=== PATIENT | female | born 2000 | race African-American/Black ===

== ENCOUNTER 2019-04-28 23:30 | Emergency (ER) | payer OTHER ==
[2019-04-29 02:23] LABS: APPEARANCE,URINE CLOUDY; BILIRUBIN,URINE NEGATIVE (NEGATIVE); COLOR,URINE YELLOW; GLUCOSE, URINE NEGATIVE (NEGATIVE); KETONES,URINE 80 mg/dL (NEGATIVE); LEUKOCYTE ESTERASE,URINE LARGE (NEGATIVE); NITRITE,URINE NEGATIVE (NEGATIVE); PROTEIN,URINE 100 mg/dL (NEGATIVE); URINE SPECIFIC GRAVITY 1.024; UROBILINOGEN,URINE NEGATIVE mg/dL (<2.0)
[2019-04-29] MEDS ORDERED: ONDANSETRON 4 MG TAB.RAPDIS PO ONE (03:08)
--- NOTE | 2019-04-29 03:09 | ER Document Report ---
ED GI/ - General Chief Complaint: Urinary Problem Stated Complaint: URINARY PROBLEM Time Seen by Provider: 04/29/19 03:00 Primary Care Provider: ASHTYN BYNUM FNP [Primary Care Provider] - Follow up as needed Notes: Patient is a 19-year-old female that comes emergency department for chief complaint of lower abdominal pain, burning with urination, blood in the urine, nausea and vomiting. Symptoms started over the past 24 hours. She states she vomited 3 times. She denies flank pain, denies fever, denies history of kidney stones. She also does report a whitish vaginal discharge. She denies vaginal bleeding. She is on oral contraceptive, takes no other medications, has had a history of umbilical hernia repair, denies medical history otherwise. She is sexually active, she is states she is uncertain if she has possibly been exposed to an STD. TRAVEL OUTSIDE OF THE [place] IN LAST 30 DAYS: No - Related Data Allergies/Adverse Reactions: No Known Allergies Allergy (Unverified 04/29/19 01:38) Home Medications: CONTROL Past Medical History - General Information source: Patient - Social History Smoking Status: Current Every Day Smoker Frequency of alcohol use: None Drug Abuse: None Lives with: Family Family History: Reviewed & Not Pertinent Patient has suicidal ideation: No Patient has homicidal ideation: No - Medical History Medical History: Negative Surgical Hx: Negative - Immunizations Immunizations up to date: Yes Hx Diphtheria, Pertussis, Tetanus Vaccination: Yes Review of Systems - Review of Systems Constitutional: No symptoms reported EENT: No symptoms reported Cardiovascular: No symptoms reported Respiratory: No symptoms reported Gastrointestinal: See HPI Genitourinary: See HPI Female Genitourinary: See HPI Musculoskeletal: No symptoms reported Skin: No symptoms reported Hematologic/Lymphatic: No symptoms reported Neurological/Psychological: No symptoms reported Physical Exam - Vital signs Vitals: Temp Pulse Resp BP Pulse Ox 99.3 F 84 20 119/66 98 04/28/19 23:48 04/28/19 23:48 04/28/19 23:48 04/28/19 23:48 04/28/19 23:48 - Notes Notes: GENERAL: Alert, interacts well. No acute distress. HEAD: Normocephalic, atraumatic. EYES: Pupils equal, round, and reactive to light. Extraocular movements intact. ENT: Oral mucosa moist, tongue midline. Oropharynx unremarkable. Airway patent. LUNGS: Clear to auscultation bilaterally, no wheezes, rales, or rhonchi. No respiratory distress. HEART: Regular rate and rhythm. No murmur ABDOMEN: There is some lower abdominal central and suprapubic tenderness. Remaining abdomen completely benign. Bowel sounds present throughout. No guarding. EXTREMITIES: Moves all 4 extremities spontaneously. No edema, normal radial and dorsalis pedis pulses bilaterally. No cyanosis. BACK: No CVA tenderness. No cervical, thoracic, lumbar midline tenderness. No saddle anesthesia, normal distal neurovascular exam. Moves all extremities in full range of motion. NEUROLOGICAL: Alert and oriented x3. Normal speech. Cranial nerves II through XII grossly intact. PSYCH: Normal affect, normal mood. SKIN: Warm, dry, normal turgor. No rashes or lesions noted. Course - Re-evaluation Re-evalutation: Patient with some suprapubic tenderness, no CVA tenderness, she does report vomiting and nausea earlier but she was able to tolerate p.o. very easily now and she is laughing and well-appearing. Abdomen otherwise is very unremarkable. We did perform pelvic exam to rule out infection but this was very unremarkable on exam and the wet mount is very unremarkable. I discussed with patient and decision was made not to treat for STDs because of the lack of symptoms and the unremarkable work-up at this point. Urinalysis does indicate infection, test negative. She will be treated for suspected cystitis with Keflex, she will return if she worsens including returned nausea/vomiting, spiking fevers, or any other concerning or worsening symptoms. Patient states appreciation and agreement. Stable at time of discharge. 04/29/19 07:29 Final results are now available, chlamydia is negative gonorrhea is actually positive. I called and spoke with patient on the phone, I informed her of her positive gonorrhea test and the importance that she and her partner be treated now. She states that she will follow-up immediately and be treated. - Vital Signs Vital signs: Temp Pulse Resp BP Pulse Ox 98.3 F 118 H 16 138/76 H 99 04/29/19 06:00 04/29/19 06:00 04/29/19 06:00 04/29/19 06:00 04/29/19 06:00 - Laboratory Laboratory results interpreted by me: 04/29/19 04/29/19 01:53 04:00 Urine Protein 100 H Urine Ketones 80 H Urine Blood MODERATE H Ur Leukocyte Esterase LARGE H N.gonorrhoeae DNA (PCR) DETECTED H Discharge - Discharge Clinical Impression: Dysuria Urinary tract infection Qualifiers: Urinary tract infection type: acute cystitis Hematuria presence: with hematuria Qualified Code(s): N30.01 - Acute cystitis with hematuria Nausea and vomiting Qualifiers: Vomiting type: unspecified Vomiting Intractability: non-intractable Qualified Code(s): R11.2 - Nausea with vomiting, unspecified Condition: Stable Disposition: HOME, SELF-CARE Additional Instructions: Your evaluation is most consistent with a urinary tract infection, most likely a bladder infection. Take antibiotics as prescribed to completion. Rest. Drink plenty of fluids. Take the Zofran if needed for nausea. Follow-up closely with primary care. Return if you worsen including spiking fevers, vomiting, severe worsening pain, or any other concerning symptoms. Prescriptions: Cephalexin Monohydrate [Keflex 500 mg Capsule] 500 mg PO BID 7 Days #14 capsule Referrals: ASHTYN BYNUM FNP [Primary Care Provider] - Follow up as needed
[2019-04-29 04:33] LABS: RBCS (WET MOUNT) FEW RBCS SEEN; WBCS (WET MOUNT) FEW WBCS SEEN; YEAST (WET MOUNT) NO YEAST SEEN
[2019-04-29 04:34] LABS: T.VAGINALIS (WET MOUNT) NO TRICHOMONAS SEEN
[2019-04-29] MEDS ORDERED: CEPHALEXIN 500 MG CAPSULE PO ONE (04:37)
[2019-04-29] MEDS ORDERED: ONDANSETRON ODT 4 MG TAB (6 TAB/ER DISP) PO PRN (04:39)
[2019-04-29 06:01] VITALS: BP 138/76
[2019-04-29 06:17] LABS: CHLAM PCR NOT DETECTED (NOT DETECT)
== END 2019-04-29 06:05 | disposition home or self-care (01) ==
LOC: ER 23:30
DX: N30.01 Acute cystitis with hematuria (principal); R10.30 Lower abdominal pain, unspecified; R30.0 Dysuria; R11.2 Nausea with vomiting, unspecified; F17.200 Nicotine dependence, unspecified, uncomplicated
CPT/HCPCS: 87210; 81025; 81001; 87491; 87591; S0119; 87086; 87088; 99283

== ENCOUNTER 2019-05-01 10:47 | Emergency (ER) | payer OTHER ==
[2019-05-01] MEDS ORDERED: CEFTRIAXONE INJ 250 MG VIAL IM ONE (10:49)
[2019-05-01] MEDS ORDERED: LIDOCAINE 1% INJ-PF (10 MG/ML) 30 ML SDV INJ ONE (10:49)
[2019-05-01] MEDS ORDERED: AZITHROMYCIN 250 MG TABLET PO ONE (10:49)
--- NOTE | 2019-05-01 10:58 | ER Document Report ---
HPI - HPI Patient complains to provider of: Treatment for gonorrhea Time Seen by Provider: 05/01/19 10:53 Onset/Duration: Persistent Quality of pain: Burning Pain Level: 1 Context: Patient states that she was seen here recently and treated for UTI. Patient received a phone call stating that she tested positive for gonorrhea and that she needs to receive a Rocephin injection. Associated Symptoms: denies: Fever, Nausea, Vomiting Exacerbated by: Denies Relieved by: Denies Similar symptoms previously: No Recently seen / treated by doctor: Yes - ROS ROS below otherwise negative: Yes Systems Reviewed and Negative: Yes All other systems reviewed and negative - CONSTITUTIONAL Constitutional: DENIES: Fever, Chills - NEURO Neurology: DENIES: Weakness - GASTROINTESTINAL Gastrointestinal: DENIES: Abdominal Pain, Nausea, Patient vomiting - URINARY Urinary: REPORTS: Dysuria - REPRODUCTIVE Reproductive: REPORTS: Abnormal bleeding / discharge. DENIES: : - MUSCULOSKELETAL Musculoskeletal: DENIES: Back Pain - DERM Skin Color: Normal Skin Problems: None Past Medical History - General Information source: Patient - Social History Smoking Status: Current Every Day Smoker Chew tobacco use (# tins/day): No Frequency of alcohol use: None Drug Abuse: None Occupation: None Family History: Reviewed & Not Pertinent Patient has suicidal ideation: No Patient has homicidal ideation: No - Medical History Medical History: Negative Pulmonary Medical History: Reports: Hx Asthma Past Surgical History: Reports: Hx Herniorrhaphy - Immunizations Immunizations up to date: Yes Hx Diphtheria, Pertussis, Tetanus Vaccination: Yes Vertical Provider Document - CONSTITUTIONAL Agree With Documented VS: Yes Exam Limitations: No Limitations General Appearance: WD/WN, No Apparent Distress - INFECTION CONTROL TRAVEL OUTSIDE OF THE [place] IN LAST 30 DAYS: No - HEENT HEENT: Atraumatic, Normocephalic - NECK Neck: Normal Inspection - RESPIRATORY Respiratory: Breath Sounds Normal, No Respiratory Distress - CARDIOVASCULAR Cardiovascular: Regular Rate, Regular Rhythm - GI/ABDOMEN Gastrointestinal: Abdomen Soft - BACK Back: Normal Inspection. negative: CVA Tenderness-Right, CVA Tenderness-Left - MUSCULOSKELETAL/EXTREMETIES Musculoskeletal/Extremeties: MAEW - NEURO Level of Consciousness: Awake, Alert, Appropriate Motor/Sensory: No Motor Deficit - DERM Integumentary: Warm, Dry Course - Re-evaluation Re-evalutation: 05/01/19 11:09 Patient was evaluated here 2 days ago and had STD testing performed. Will give patient a shot of Rocephin as well as azithromycin. Patient encouraged to finish current course of antibiotics for her UTI. - Laboratory Laboratory results interpreted by me: 05/01/19 11:10 Reviewed labs from previous ER visit Discharge - Discharge Clinical Impression: Dysuria, Gonorrhea Condition: Stable Disposition: HOME, SELF-CARE Instructions: Antibiotic Shot ([facility]), Azithromycin ([facility]), Gonorrhea ([facility]), Rocephin ([facility]) Additional Instructions: Return immediately for any new or worsening symptoms Followup with your primary care provider, call tomorrow to make a followup appointment Your partner will need to be treated for gonorrhea as well so that you do not get reinfected Referrals: ASHTYN BYNUM FNP [Primary Care Provider] - Follow up as needed
== END 2019-05-01 11:46 | disposition home or self-care (01) ==
LOC: ER 10:47
DX: A54.9 Gonococcal infection, unspecified (principal); N39.0 Urinary tract infection, site not specified; N93.9 Abnormal uterine and vaginal bleeding, unspecified; J45.909 Unspecified asthma, uncomplicated; F17.200 Nicotine dependence, unspecified, uncomplicated
CPT/HCPCS: J3490; J0696; 96372; 99281